=== PATIENT | female | born 1970 | race Caucasian/White ===

== ENCOUNTER 2018-01-20 15:46 | Inpatient (IN) | payer OTHER, MEDICAID ==
[~2018-01-20] VITALS: Ht 152.4 cm; Wt 47.4 kg
[2018-01-20 15:55] VITALS: BP_SYST 128
[2018-01-20 16:37] LABS: BASOPHILS # (AUTO) 0.1 K/uL (0.0-0.2); BASOPHILS % (AUTO) 1.1 % (0.0-2.0); EOSINOPHILS % (AUTO) 0.4 % (0.0-4.0); HEMATOCRIT 23.8 % (36-48); HEMOGLOBIN 7.2 g/dL (12.0-16.0); LYMPHOCYTES # (AUTO) 2.2 K/uL (1.0-5.5); LYMPHOCYTES % (AUTO) 27.8 % (20.5-51.5); MEAN CORPUSCULAR HEMOGLOBIN 23 pg (27-31); MEAN CORPUSCULAR HGB CONC 30 % (32-36); MEAN CORPUSCULAR VOLUME 77 fL (79.0-98.0); MONOCYTES # (AUTO) 0.8 K/uL (0.0-1.0); NEUTROPHILS # (AUTO) 4.9 K/uL (1.8-7.7); NEUTROPHILS % (AUTO) 60.7 % (40.0-70.0); PLATELET COUNT (AUTO) 600 K/uL (130-430); RED BLOOD CELL COUNT(AUTO) 3.09 MIL/uL (4.2-6.2); RED CELL DISTRIBUTION WIDTH 21.4 % (9.0-15.0)
[2018-01-20 16:52] LABS: ANION GAP 10 (5-15); CALCIUM 7.7 mg/dL (8.4-11.0); CHLORIDE 97 mmol/L (98-107); CREATININE 2.36 mg/dL (0.55-1.30); GFR AFRICAN AMERICAN 29 mL/min (>90); GLUCOSE 101 mg/dL (70-99); POTASSIUM 3.3 mmol/L (3.5-5.1); SODIUM SERUM 134 mmol/L (136-145); UREA NITROGEN, BLOOD 28 mg/dL (8-21)
[2018-01-20] MEDS ORDERED: HYDR2TAB4 PO (16:52)
[2018-01-20] MEDS ORDERED: NEU300 PO (16:52)
[2018-01-20] MEDS ORDERED: SENN8.6T19 PO (16:52)
[2018-01-20] MEDS ORDERED: DULO60CA41 PO (16:52)
[2018-01-20] MEDS ORDERED: EPOE3000 SQ (16:52)
[2018-01-20] MEDS ORDERED: PHO667 PO (16:52)
[2018-01-20] MEDS ORDERED: ASCO500T20 PO (16:52)
[2018-01-20] MEDS ORDERED: FERR140T PO (16:52)
[2018-01-20] MEDS ORDERED: MULT-1089 PO (16:52)
[2018-01-20] MEDS ORDERED: SACC250C3 PO (16:52)
[2018-01-20] MEDS ORDERED: LACT1CAP61 PO (16:52)
[2018-01-20] MEDS ORDERED: BENZ1SPR MM (16:52)
[2018-01-20] MEDS ORDERED: ACET-2165 PO (16:52)
[2018-01-20] MEDS ORDERED: MELA3TAB PO (16:52)
[2018-01-20] MEDS ORDERED: APIX5TAB4 PO (16:52)
[2018-01-20] MEDS ORDERED: OXYB10TA4 PO (16:52)
[2018-01-20] MEDS ORDERED: AMLO2.5T2 PO (16:52)
[2018-01-20 16:55] LABS: INR 1.2 (0.8-1.2); PROTHROMBIN TIME 12.1 SECS (9.5-12.5)
[2018-01-20 16:56] LABS: ASPARTATE AMINOTRANSFERASE 7 U/L (10-37); TOTAL BILIRUBIN 0.3 mg/dL (0.0-1.0)
[2018-01-20 17:15] LABS: ALANINE AMINOTRANSFERASE < 5 U/L (12-78)
[2018-01-20] MEDS ORDERED: D5/0.45 NS 1,000 ML IV SCH (17:19)
[2018-01-20] MEDS ORDERED: ONDANSETRON HCL 4 MG/2 ML VIAL IVP PRN (17:30)
[2018-01-20] MEDS ORDERED: ACETAMINOPHEN 325 MG TABLET PO PRN (17:30)
[2018-01-20 18:25] VITALS: BP_SYST 131
[2018-01-20 18:27] VITALS: BP_SYST 131
[2018-01-20] MEDS ORDERED: HYDROmorphone 2 MG TAB ONE (18:50)
[2018-01-20 19:00] VITALS: BP_SYST 138
[2018-01-20 20:00] VITALS: BP_SYST 136
[2018-01-20] MEDS: DULoxetine HCL 30 MG CAPSULE.DR (CYMBALTA) PO SCH (21:00)
[2018-01-20] MEDS: OXYBUTYNIN CHLORIDE 5 MG TABLET PO SCH (21:00)
[2018-01-20] MEDS ORDERED: APIXABAN 2.5 MG TABLET PO SCH (21:00)
[2018-01-20] MEDS: GABAPENTIN 300 MG CAPSULE PO SCH (21:00)
[2018-01-20] MEDS: FERROUS SULFATE 325 MG TABLET.DR PO SCH (21:00)
[2018-01-20] MEDS: ASCORBIC ACID 500 MG TABLET PO SCH (21:00)
[2018-01-20] MEDS ORDERED: APIXABAN 2.5 MG TABLET PO ONE (21:00)
[2018-01-20] MEDS: CALCIUM ACETATE 667 MG CAP PO SCH (22:01)
[2018-01-20] MEDS: HYDROmorphone 2 MG TAB PO PRN (22:19)
[2018-01-21] MEDS: HYDROmorphone 2 MG TAB PO PRN ×6 (02:25→23:00)
[2018-01-21 07:13] LABS: BASOPHILS # (AUTO) 0.1 K/uL (0.0-0.2); BASOPHILS % (AUTO) 0.7 % (0.0-2.0); EOSINOPHILS # (AUTO) 0.1 K/uL (0.0-0.4); EOSINOPHILS % (AUTO) 0.8 % (0.0-4.0); HEMATOCRIT 23.6 % (36-48); HEMOGLOBIN 7.2 g/dL (12.0-16.0); LYMPHOCYTES # (AUTO) 2.6 K/uL (1.0-5.5); LYMPHOCYTES % (AUTO) 33.8 % (20.5-51.5); MEAN CORPUSCULAR HEMOGLOBIN 23 pg (27-31); MEAN CORPUSCULAR HGB CONC 31 % (32-36); MEAN CORPUSCULAR VOLUME 77 fL (79.0-98.0); MONOCYTES # (AUTO) 0.7 K/uL (0.0-1.0); MONOCYTES % (AUTO) 9.6 % (1.7-9.3); NEUTROPHILS # (AUTO) 4.1 K/uL (1.8-7.7); NEUTROPHILS % (AUTO) 55.1 % (40.0-70.0); PLATELET COUNT (AUTO) 598 K/uL (130-430); RED BLOOD CELL COUNT(AUTO) 3.09 MIL/uL (4.2-6.2); RED CELL DISTRIBUTION WIDTH 21.1 % (9.0-15.0); WHITE BLOOD COUNT (AUTO) 7.6 K/uL (4.8-10.8)
[2018-01-21 07:25] LABS: CALCIUM 7.8 mg/dL (8.4-11.0); CREATININE 2.44 mg/dL (0.55-1.30); POTASSIUM 3.4 mmol/L (3.5-5.1)
[2018-01-21 07:29] LABS: PHOSPHORUS 5.2 mg/dL (2.7-4.5)
[2018-01-21 08:00] VITALS: BP_SYST 118
[2018-01-21] MEDS ORDERED: ZOLPIDEM TARTRATE 5 MG TABLET PO PRN (08:30)
[2018-01-21] MEDS ORDERED: ONDANSETRON HCL 4 MG/2 ML VIAL IVP PRN (08:30)
[2018-01-21] MEDS ORDERED: MUPIROCIN 2% TOPICAL OINTMENT 22 GM NS PRN (08:30)
[2018-01-21] MEDS ORDERED: MAGNESIUM SULFATE 50 ML IV PRN (08:30)
[2018-01-21] MEDS ORDERED: ACETAMINOPHEN 325 MG TABLET PO PRN (08:30)
[2018-01-21] MEDS ORDERED: POTASSIUM CHLORIDE 20 MEQ TAB.PRT.SR PO PRN (08:30)
[2018-01-21] MEDS ORDERED: OXYBUTYNIN CHLORIDE 5 MG XL TAB PO SCH (09:00)
[2018-01-21] MEDS: FERROUS SULFATE 325 MG TABLET.DR PO SCH ×2 (09:00→21:00)
[2018-01-21] MEDS: ASCORBIC ACID 500 MG TABLET PO SCH ×2 (09:00→21:00)
[2018-01-21] MEDS: amLODIPine BESYLATE 5 MG TABLET PO SCH (09:00)
[2018-01-21] MEDS: OXYBUTYNIN CHLORIDE 5 MG TABLET PO SCH (09:00)
[2018-01-21] MEDS: LACTOBACILLUS RHAMNOSUS GG 1 CAP CAPSULE PO SCH (09:00)
[2018-01-21] MEDS: APIXABAN 2.5 MG TABLET PO SCH (09:00)
[2018-01-21] MEDS: GABAPENTIN 300 MG CAPSULE PO SCH ×3 (09:00→21:00)
[2018-01-21] MEDS: MULTIVITAMINS TAB 1 TABLET PO SCH (09:00)
[2018-01-21] MEDS: CALCIUM ACETATE 667 MG CAP PO SCH ×3 (10:16→17:40)
[2018-01-21] MEDS: DOCUSATE SODIUM 100 MG CAPSULE PO PRN (10:17)
[2018-01-21] MEDS ORDERED: COMMUNICATION ORDER XX ONE (10:30)
[2018-01-21 12:02] VITALS: BP_SYST 130
[2018-01-21 16:02] VITALS: BP_SYST 116
[2018-01-21 20:00] VITALS: BP_SYST 108
[2018-01-21] MEDS: DULoxetine HCL 30 MG CAPSULE.DR (CYMBALTA) PO SCH (21:00)
[2018-01-21] MEDS ORDERED: ALBUTEROL SULFATE 0.083% 2.5 MG/3 ML VIAL.NEB INH PRN (22:45)
[2018-01-21] MEDS ORDERED: BISACODYL 10 MG/SUPPOSITORY RC ONE (23:00)
[2018-01-21 23:40] VITALS: BP_SYST 108
[2018-01-22] MEDS: HYDROmorphone 2 MG TAB PO PRN ×5 (03:04→21:17)
[2018-01-22 07:24] LABS: BASOPHILS # (AUTO) 0.1 K/uL (0.0-0.2); BASOPHILS % (AUTO) 0.8 % (0.0-2.0); EOSINOPHILS # (AUTO) 0.1 K/uL (0.0-0.4); EOSINOPHILS % (AUTO) 1.3 % (0.0-4.0); HEMATOCRIT 24.1 % (36-48); HEMOGLOBIN 7.3 g/dL (12.0-16.0); LYMPHOCYTES # (AUTO) 3.4 K/uL (1.0-5.5); LYMPHOCYTES % (AUTO) 35.2 % (20.5-51.5); MEAN CORPUSCULAR HEMOGLOBIN 23 pg (27-31); MEAN CORPUSCULAR HGB CONC 30 % (32-36); MEAN CORPUSCULAR VOLUME 76 fL (79.0-98.0); MONOCYTES # (AUTO) 0.8 K/uL (0.0-1.0); MONOCYTES % (AUTO) 8.4 % (1.7-9.3); NEUTROPHILS # (AUTO) 5.3 K/uL (1.8-7.7); NEUTROPHILS % (AUTO) 54.3 % (40.0-70.0); PLATELET COUNT (AUTO) 565 K/uL (130-430); RED BLOOD CELL COUNT(AUTO) 3.18 MIL/uL (4.2-6.2); WHITE BLOOD COUNT (AUTO) 9.7 K/uL (4.8-10.8)
[2018-01-22 07:28] LABS: CREATININE 2.59 mg/dL (0.55-1.30); TOTAL IRON BIND. CAPACITY 215 ug/dL (250-450)
[2018-01-22 08:00] VITALS: BP_SYST 122
[2018-01-22] MEDS: CALCIUM ACETATE 667 MG CAP PO SCH ×3 (08:00→18:00)
[2018-01-22 08:09] LABS: RED CELL DISTRIBUTION WIDTH 21.5 % (9.0-15.0)
[2018-01-22] MEDS: GABAPENTIN 300 MG CAPSULE PO SCH ×3 (09:00→21:00)
[2018-01-22] MEDS: APIXABAN 2.5 MG TABLET PO SCH ×2 (09:00→21:00)
[2018-01-22] MEDS: MULTIVITAMINS TAB 1 TABLET PO SCH (09:00)
[2018-01-22] MEDS: FERROUS SULFATE 325 MG TABLET.DR PO SCH ×2 (09:00→21:00)
[2018-01-22] MEDS: ASCORBIC ACID 500 MG TABLET PO SCH ×2 (09:00→21:00)
[2018-01-22] MEDS: amLODIPine BESYLATE 5 MG TABLET PO SCH (09:00)
[2018-01-22] MEDS: LACTOBACILLUS RHAMNOSUS GG 1 CAP CAPSULE PO SCH (09:00)
[2018-01-22] MEDS ORDERED: HEPARIN SODIUM,PORCINE 5000 UNITS/ML VIAL ONE (09:09)
[2018-01-22] MEDS: LORazepam 2 MG/ML VIAL IVP PRN ×2 (09:10→22:59)
[2018-01-22 17:26] VITALS: BP_SYST 119
[2018-01-22] MEDS ORDERED: HEPARIN SODIUM,PORCINE 5000 UNITS/ML VIAL IVP ONE (18:45)
[2018-01-22 20:00] VITALS: BP_SYST 133
[2018-01-22] MEDS: DULoxetine HCL 30 MG CAPSULE.DR (CYMBALTA) PO SCH (21:00)
[2018-01-23] MEDS: HYDROmorphone 2 MG TAB PO PRN ×5 (01:03→20:52)
[2018-01-23 07:54] LABS: CALCIUM 7.7 mg/dL (8.4-11.0); CREATININE 1.81 mg/dL (0.55-1.30); POTASSIUM 3.2 mmol/L (3.5-5.1)
[2018-01-23 08:30] LABS: BASOPHILS # (AUTO) 0.1 K/uL (0.0-0.2); BASOPHILS % (AUTO) 0.6 % (0.0-2.0); EOSINOPHILS # (AUTO) 0.1 K/uL (0.0-0.4); EOSINOPHILS % (AUTO) 1.3 % (0.0-4.0); LYMPHOCYTES # (AUTO) 2.2 K/uL (1.0-5.5); LYMPHOCYTES % (AUTO) 23.1 % (20.5-51.5); MEAN CORPUSCULAR HEMOGLOBIN 24 pg (27-31); MEAN CORPUSCULAR HGB CONC 32 % (32-36); MEAN CORPUSCULAR VOLUME 76 fL (79.0-98.0); MONOCYTES # (AUTO) 0.9 K/uL (0.0-1.0); MONOCYTES % (AUTO) 9.3 % (1.7-9.3); NEUTROPHILS # (AUTO) 6.4 K/uL (1.8-7.7); NEUTROPHILS % (AUTO) 65.7 % (40.0-70.0); PLATELET COUNT (AUTO) 470 K/uL (130-430); RED BLOOD CELL COUNT(AUTO) 2.58 MIL/uL (4.2-6.2); RED CELL DISTRIBUTION WIDTH 22.1 % (9.0-15.0); WHITE BLOOD COUNT (AUTO) 9.7 K/uL (4.8-10.8)
[2018-01-23 08:36] LABS: HEMATOCRIT 19.6 % (36-48); HEMOGLOBIN 6.3 g/dL (12.0-16.0)
[2018-01-23] MEDS: MULTIVITAMINS TAB 1 TABLET PO SCH (09:00)
[2018-01-23] MEDS: amLODIPine BESYLATE 5 MG TABLET PO SCH (09:00)
[2018-01-23] MEDS: FERROUS SULFATE 325 MG TABLET.DR PO SCH ×2 (09:00→20:54)
[2018-01-23] MEDS: ASCORBIC ACID 500 MG TABLET PO SCH ×2 (09:00→20:54)
[2018-01-23] MEDS: GABAPENTIN 300 MG CAPSULE PO SCH ×3 (09:00→20:54)
[2018-01-23] MEDS: LACTOBACILLUS RHAMNOSUS GG 1 CAP CAPSULE PO SCH (09:00)
[2018-01-23] MEDS: CALCIUM ACETATE 667 MG CAP PO SCH ×3 (09:34→16:57)
[2018-01-23] MEDS: APIXABAN 2.5 MG TABLET PO SCH (09:37)
[2018-01-23 09:50] VITALS: BP_SYST 110
[2018-01-23] MEDS ORDERED: CARVEDILOL 6.25 MG TABLET (COREG) PO ONE (11:30)
[2018-01-23] MEDS: PIPERACILLIN/TAZO 2.25G/DEX-IS 50 ML IV SCH ×2 (14:57→18:33)
[2018-01-23] MEDS: LORazepam 2 MG/ML VIAL IVP PRN ×2 (15:57→21:46)
[2018-01-23] MEDS: POLYETHYLENE GLYCOL 3350, 17 GM/ POWD.PACK PO PRN (18:33)
[2018-01-23 20:00] VITALS: BP_SYST 120
[2018-01-23] MEDS: DULoxetine HCL 30 MG CAPSULE.DR (CYMBALTA) PO SCH (20:54)
[2018-01-23] MEDS: CARVEDILOL 6.25 MG TABLET (COREG) PO SCH (20:54)
[2018-01-23 22:30] VITALS: BP_SYST 128
[2018-01-23 22:45] VITALS: BP_SYST 106
[2018-01-24] MEDS: PIPERACILLIN/TAZO 2.25G/DEX-IS 50 ML IV SCH ×5 (01:08→23:24)
[2018-01-24] MEDS: HYDROmorphone 2 MG TAB PO PRN ×5 (02:45→20:23)
[2018-01-24 07:20] LABS: BASOPHILS # (AUTO) 0.1 K/uL (0.0-0.2); BASOPHILS % (AUTO) 0.7 % (0.0-2.0); EOSINOPHILS # (AUTO) 0.2 K/uL (0.0-0.4); EOSINOPHILS % (AUTO) 1.6 % (0.0-4.0); HEMATOCRIT 28.3 % (36-48); HEMOGLOBIN 8.9 g/dL (12.0-16.0); LYMPHOCYTES # (AUTO) 3.1 K/uL (1.0-5.5); LYMPHOCYTES % (AUTO) 29.5 % (20.5-51.5); MEAN CORPUSCULAR HEMOGLOBIN 25 pg (27-31); MEAN CORPUSCULAR HGB CONC 32 % (32-36); MEAN CORPUSCULAR VOLUME 79 fL (79.0-98.0); MONOCYTES # (AUTO) 1.1 K/uL (0.0-1.0); MONOCYTES % (AUTO) 10.8 % (1.7-9.3); NEUTROPHILS # (AUTO) 5.9 K/uL (1.8-7.7); NEUTROPHILS % (AUTO) 57.4 % (40.0-70.0); PLATELET COUNT (AUTO) 425 K/uL (130-430); RED BLOOD CELL COUNT(AUTO) 3.56 MIL/uL (4.2-6.2); RED CELL DISTRIBUTION WIDTH 19.7 % (9.0-15.0); WHITE BLOOD COUNT (AUTO) 10.4 K/uL (4.8-10.8)
[2018-01-24 07:22] LABS: CALCIUM 7.6 mg/dL (8.4-11.0); CREATININE 2.09 mg/dL (0.55-1.30); POTASSIUM 3.8 mmol/L (3.5-5.1)
[2018-01-24 07:36] LABS: THYROID STIMULATING HORMONE 2.88 uIu/mL (0.36-3.74)
[2018-01-24 07:50] VITALS: BP_SYST 94
[2018-01-24] MEDS: GABAPENTIN 300 MG CAPSULE PO SCH ×3 (08:27→21:00)
[2018-01-24] MEDS: LACTOBACILLUS RHAMNOSUS GG 1 CAP CAPSULE PO SCH (08:27)
[2018-01-24] MEDS: MULTIVITAMINS TAB 1 TABLET PO SCH (08:27)
[2018-01-24] MEDS: FERROUS SULFATE 325 MG TABLET.DR PO SCH ×2 (08:28→21:00)
[2018-01-24] MEDS: CARVEDILOL 6.25 MG TABLET (COREG) PO SCH ×2 (08:28→21:00)
[2018-01-24] MEDS: amLODIPine BESYLATE 5 MG TABLET PO SCH (08:29)
[2018-01-24] MEDS: ASCORBIC ACID 500 MG TABLET PO SCH ×2 (08:29→21:00)
[2018-01-24] MEDS: CALCIUM ACETATE 667 MG CAP PO SCH ×3 (08:29→18:00)
[2018-01-24] MEDS: LORazepam 2 MG/ML VIAL IVP PRN ×4 (08:30→23:30)
[2018-01-24 11:26] VITALS: BP_SYST 86
[2018-01-24] MEDS ORDERED: LIDOCAINE 1%, 20 ML MDV 20 ML ONE (13:17)
[2018-01-24 16:10] VITALS: BP_SYST 85
[2018-01-24 20:00] VITALS: BP_SYST 102
[2018-01-24] MEDS: DULoxetine HCL 30 MG CAPSULE.DR (CYMBALTA) PO SCH (21:00)
[2018-01-24 22:14] LABS: BODY FLUID GLUCOSE 94 mg/dL; BODY FLUID TOTAL PROTEIN 3.8 g/dL
[2018-01-24 23:59] LABS: APPEARANCE,SPUN,BODY FLUID CLEAR (CLEAR); BF APPEARANCE UNSPUN CLOUDY (CLEAR); BODY FLUID COLOR RED (LT YELLOW); BODY FLUID SOURCE/ TYPE PLEURAL; BODY FLUID TOTAL VOLUME 400 mL; RBC, BODY FLUID 20028 /uL; SOURCE/TYPE ,BODY FLUID PLEURAL; WBC, BODY FLUID 517 /uL
[2018-01-25] LABS: EOSINOPHIL, BODY FLUID 0 %; LYMPHOCYTES, BODY FLUID 82 %; MONOCYTES,BODY FLUID 8 %; NEUTROPHIL, BODY FLUID 10 %
[2018-01-25] MEDS: HYDROmorphone 2 MG TAB PO PRN ×5 (02:17→20:53)
[2018-01-25] MEDS: LORazepam 2 MG/ML VIAL IVP PRN ×3 (03:57→23:36)
[2018-01-25] MEDS: PIPERACILLIN/TAZO 2.25G/DEX-IS 50 ML IV SCH ×4 (05:56→23:28)
[2018-01-25 07:45] VITALS: BP_SYST 102
[2018-01-25 08:00] VITALS: BP_SYST 98
[2018-01-25] MEDS: CALCIUM ACETATE 667 MG CAP PO SCH ×3 (08:00→17:20)
[2018-01-25] MEDS: FERROUS SULFATE 325 MG TABLET.DR PO SCH ×2 (08:27→20:58)
[2018-01-25] MEDS: CARVEDILOL 6.25 MG TABLET (COREG) PO SCH ×2 (08:28→20:57)
[2018-01-25] MEDS: LACTOBACILLUS RHAMNOSUS GG 1 CAP CAPSULE PO SCH (08:28)
[2018-01-25] MEDS: MULTIVITAMINS TAB 1 TABLET PO SCH (08:29)
[2018-01-25] MEDS: GABAPENTIN 300 MG CAPSULE PO SCH ×3 (08:29→20:58)
[2018-01-25] MEDS: ASCORBIC ACID 500 MG TABLET PO SCH ×2 (08:29→20:58)
[2018-01-25] MEDS: amLODIPine BESYLATE 5 MG TABLET PO SCH (08:29)
[2018-01-25 08:34] LABS: BASOPHILS # (AUTO) 0.1 K/uL (0.0-0.2); BASOPHILS % (AUTO) 0.8 % (0.0-2.0); EOSINOPHILS # (AUTO) 0.1 K/uL (0.0-0.4); EOSINOPHILS % (AUTO) 1.8 % (0.0-4.0); HEMATOCRIT 27.5 % (36-48); HEMOGLOBIN 8.6 g/dL (12.0-16.0); LYMPHOCYTES # (AUTO) 2.6 K/uL (1.0-5.5); MEAN CORPUSCULAR HEMOGLOBIN 25 pg (27-31); MEAN CORPUSCULAR HGB CONC 31 % (32-36); MEAN CORPUSCULAR VOLUME 80 fL (79.0-98.0); MONOCYTES # (AUTO) 0.8 K/uL (0.0-1.0); MONOCYTES % (AUTO) 10.2 % (1.7-9.3); NEUTROPHILS # (AUTO) 4.2 K/uL (1.8-7.7); NEUTROPHILS % (AUTO) 54.2 % (40.0-70.0); PLATELET COUNT (AUTO) 378 K/uL (130-430); RED BLOOD CELL COUNT(AUTO) 3.43 MIL/uL (4.2-6.2); RED CELL DISTRIBUTION WIDTH 20.3 % (9.0-15.0); WHITE BLOOD COUNT (AUTO) 7.8 K/uL (4.8-10.8)
[2018-01-25 08:59] LABS: CALCIUM 7.7 mg/dL (8.4-11.0); CREATININE 2.59 mg/dL (0.55-1.30)
[2018-01-25 12:34] VITALS: BP_SYST 106
[2018-01-25 16:21] VITALS: BP_SYST 124
[2018-01-25 20:30] VITALS: BP_SYST 111
[2018-01-25] MEDS: DULoxetine HCL 30 MG CAPSULE.DR (CYMBALTA) PO SCH (20:57)
[2018-01-25] MEDS: APIXABAN 2.5 MG TABLET PO SCH (20:58)
[2018-01-26 03:37] VITALS: BP_SYST 108
[2018-01-26] MEDS: HYDROmorphone 2 MG TAB PO PRN ×4 (03:39→16:23)
[2018-01-26] MEDS: LORazepam 2 MG/ML VIAL IVP PRN ×2 (05:06→17:50)
[2018-01-26] MEDS: PIPERACILLIN/TAZO 2.25G/DEX-IS 50 ML IV SCH ×3 (05:06→17:14)
[2018-01-26 07:11] LABS: CALCIUM 7.6 mg/dL (8.4-11.0); CREATININE 1.78 mg/dL (0.55-1.30); POTASSIUM 3.8 mmol/L (3.5-5.1)
[2018-01-26] MEDS: CALCIUM ACETATE 667 MG CAP PO SCH ×3 (08:00→17:13)
[2018-01-26] MEDS: LACTOBACILLUS RHAMNOSUS GG 1 CAP CAPSULE PO SCH (08:20)
[2018-01-26] MEDS: FERROUS SULFATE 325 MG TABLET.DR PO SCH (08:20)
[2018-01-26] MEDS: amLODIPine BESYLATE 5 MG TABLET PO SCH (08:21)
[2018-01-26] MEDS: MULTIVITAMINS TAB 1 TABLET PO SCH (08:21)
[2018-01-26] MEDS: ASCORBIC ACID 500 MG TABLET PO SCH (08:21)
[2018-01-26] MEDS: GABAPENTIN 300 MG CAPSULE PO SCH ×2 (08:21→15:00)
[2018-01-26] MEDS: APIXABAN 2.5 MG TABLET PO SCH (08:28)
[2018-01-26] MEDS: CARVEDILOL 6.25 MG TABLET (COREG) PO SCH (08:29)
[2018-01-26 08:38] LABS: BASOPHILS # (AUTO) 0.1 K/uL (0.0-0.2); BASOPHILS % (AUTO) 0.9 % (0.0-2.0); EOSINOPHILS # (AUTO) 0.1 K/uL (0.0-0.4); EOSINOPHILS % (AUTO) 1.1 % (0.0-4.0); HEMATOCRIT 27.4 % (36-48); HEMOGLOBIN 8.5 g/dL (12.0-16.0); LYMPHOCYTES # (AUTO) 2.1 K/uL (1.0-5.5); LYMPHOCYTES % (AUTO) 23.6 % (20.5-51.5); MEAN CORPUSCULAR HEMOGLOBIN 25 pg (27-31); MEAN CORPUSCULAR HGB CONC 31 % (32-36); MEAN CORPUSCULAR VOLUME 80 fL (79.0-98.0); MONOCYTES # (AUTO) 0.8 K/uL (0.0-1.0); MONOCYTES % (AUTO) 9.5 % (1.7-9.3); NEUTROPHILS # (AUTO) 5.8 K/uL (1.8-7.7); NEUTROPHILS % (AUTO) 64.9 % (40.0-70.0); PLATELET COUNT (AUTO) 373 K/uL (130-430); RED BLOOD CELL COUNT(AUTO) 3.45 MIL/uL (4.2-6.2); WHITE BLOOD COUNT (AUTO) 8.9 K/uL (4.8-10.8)
[2018-01-26 09:21] VITALS: BP_SYST 94
[2018-01-26] MEDS: DOCUSATE SODIUM 100 MG CAPSULE PO PRN (09:27)
[2018-01-26] MEDS: POLYETHYLENE GLYCOL 3350, 17 GM/ POWD.PACK PO PRN (09:27)
[2018-01-26 12:00] VITALS: BP_SYST 103
[2018-01-26 16:00] VITALS: BP_SYST 101
== END 2018-01-26 18:33 | DRG 177 ==
LOC: SED 15:46 → STU 17:21
PROVIDERS: ADMIT Family Medicine; ATTEND Family Medicine
PROC: 02HV33Z Insertion of Infusion Device into Superior Vena Cava, Percutaneous Approach (ICD-10-PCS; 2018-01-20)
PROC: B548ZZA Ultrasonography of Superior Vena Cava, Guidance (ICD-10-PCS; 2018-01-20)
PROC: 5A1D70Z Performance of Urinary Filtration, Intermittent, Less than 6 Hours Per Day (ICD-10-PCS; 2018-01-22)
PROC: 30233N1 Transfusion of Nonautologous Red Blood Cells into Peripheral Vein, Percutaneous Approach (ICD-10-PCS; principal; 2018-01-23)
PROC: 0W993ZZ Drainage of Right Pleural Cavity, Percutaneous Approach (ICD-10-PCS; 2018-01-24)
PROC: 5A1D70Z Performance of Urinary Filtration, Intermittent, Less than 6 Hours Per Day (ICD-10-PCS; 2018-01-25)
DX: J69.0 Pneumonitis due to inhalation of food and vomit (principal); N17.0 Acute kidney failure with tubular necrosis; N18.6 End stage renal disease; I21.A1 Myocardial infarction type 2; I50.43 Acute on chronic combined systolic (congestive) and diastolic (congestive) heart failure; E43 Unspecified severe protein-calorie malnutrition; I13.2 Hypertensive heart and chronic kidney disease with heart failure and with stage 5 chronic kidney disease, or end stage renal disease; E87.1 Hypo-osmolality and hyponatremia; G82.20 Paraplegia, unspecified; I42.9 Cardiomyopathy, unspecified; R64 Cachexia; I42.0 Dilated cardiomyopathy; E87.6 Hypokalemia; D63.8 Anemia in other chronic diseases classified elsewhere; D50.9 Iron deficiency anemia, unspecified; F41.9 Anxiety disorder, unspecified; G89.29 Other chronic pain; K21.9 Gastro-esophageal reflux disease without esophagitis; J45.909 Unspecified asthma, uncomplicated; K59.03 Drug induced constipation; T40.2X5A Adverse effect of other opioids, initial encounter; N32.81 Overactive bladder; Z79.01 Long term (current) use of anticoagulants; Z79.891 Long term (current) use of opiate analgesic; Z86.718 Personal history of other venous thrombosis and embolism; Z87.891 Personal history of nicotine dependence; Z90.49 Acquired absence of other specified parts of digestive tract; Z99.2 Dependence on renal dialysis; Z87.01 Personal history of pneumonia (recurrent); Z74.01 Bed confinement status; Z88.5 Allergy status to narcotic agent; Z88.8 Allergy status to other drugs, medicaments and biological substances; Z79.899 Other long term (current) drug therapy; Z68.20 Body mass index [BMI] 20.0-20.9, adult; Y92.89 Other specified places as the place of occurrence of the external cause
CPT/HCPCS: 32555; 36415; 71045; 80048; 80053; 82728; 82947-TC; 83540-TC; 83550-TC; 83605; 83615-TC; 83735-TC; 83880; 84100-TC; 84155-TC; 84157-TC; 84443-TC; 84484; 85025; 85610-TC; 85730-TC; 86870; 86886; 86900; 86901; 86905; 86920; 87070-TC; 87081; 87116; 88108; 88305; 89051-TC; 89060-TC; 90935; 90937; 93005; 93306; 94760; 99285; C1729; C1751; J1644; J2001; J2060; J2543; J7030; J7050; J7120; P9021